=== PATIENT | male | born 1960 | race Caucasian/White ===

== ENCOUNTER 2016-11-23 20:55 | Emergency (ER) | payer OTHER ==
[2016-11-23 21:16] VITALS: BMI 25.7
--- NOTE | 2016-11-23 21:56 | DR.RASH ---
HPI - Time Seen Time seen: 21:50 - PCP Primary Care Physician: ANISH, - Complaint Chief Complaint:: GENERALIZED RASH Chief Complaint Doctors Comments: Patient states that he has had this rash for two to three weeks. He was given medication by pharmacist but rash continues. Onset of Chief Complaint: 11/09/16 Self Treatment fo Chief Complaint: ZRYTEC,BENDRYL,JOCK ITCH SPRAY,CALIMINE LOTION, - Source History Provided: Patient - Mode of Arrival Mode of Arrival: Ambulatory PMH - PM Past Medical History: Yes Past Medical History: Hypertension Past Surgical History: Yes Past Surgical History Comment: HERNIA REPAIR - Family History History of Family Medical Conditions: No - Social History Does patient currently use any type of tobacco product: Yes Have you used tobacco products in the last 12 months: Yes Type of Tobacco Use: Cigarettes Does any household member use tobacco: Yes Alcohol Use: None Do you use any recreational Drugs:: No Lives With: Family Lives Where: Home - infectious screening In the last 2 months have you had wt loss of >10#?: NO Have you had fever, night sweats or hemotysis?: No Have you traveled outside the country in the last 6 months?: No Isolation: Standard ROS - Review of Systems Eyes: No Symptoms Reported ENTM: No Symptoms Reported Respiratoy: No Symptoms Reported Cardiovascular: No Symptoms Reported Gastrointestinal/Abdominal: No Symptoms Reported Genitourinary: No Symptoms Reported Neurological: No Symptoms Reported Musculoskeletal: No Symptoms Reported Integumentary: No Symptoms Reported Hematologic/Lymphatic: No Symptoms Reported Endocrine: No Symptoms Reported Psychiatric: No Symptoms Reported All Other Systems: Reviewed and Negative PE - Vital Signs Vitals: Temperature 98.9 F Pulse Rate 84 Respiratory Rate 16 Blood Pressure 119/89 O2 Sat by Pulse Oximetry 96 - General Limitations: No Limitations General Appearance: Alert, In No Apparent Distress - Head Head Exam: Normal Inspection, Atraumatic - Eyes Eye exam: Normal Appearance, PERRL, EOMI - ENT ENT Exam: Normal Exam External Ear Exam: Normal External Inspection TM/Canal Exam: Bilateral Normal Nasal Speculum Exam: Bilateral Normal Mouth Exam: Normal Inspection Teeth Exam: Normal Inspection - Neck Neck Exam: Normal Inspection - Chest Chest Inspection: Normal Inspection - Respiratory Respiratory Exam: Normal Lung Sounds Bilat Respiratory Exam: Bilateral Clear to Auscultation - Cardiovascular Cardiovascular Exam: Regular Rate, Normal Rhythm - Abdominal Exam Abdominal Exam: Normal Inspection, Normal Bowel Sounds Abdominal Tenderness: negative: RUQ, RLQ, LUQ, LLQ, Epigastrium, Suprapubic, Diffuse, Mild, Moderate, Severe, Other - Extremities Extremities Exam: Normal Inspection - Back Back Exam: Normal Inspection - Neurologic Neurological Exam: Alert, Oriented X3, CN II-XII Intact - Psychiatric Psychiatric Exam: Normal Affect, Normal Mood - Skin Skin Exam: Warm, Dry, Rash (generalized macularpapular circular with hypopigmented center) Type of Lesion: Other (urticarial) Distribution: Generalized, Chest, Back, LUE, LLE - Diagnosis Discharge Problem: Urticarial vasculitis - Discharge Plan Condition: Stable - Follow ups/Referrals Follow ups/Referrals: MICHELLE OCONNELL [Primary Care Provider] - 3 days - Instructions
[2016-11-23] MEDS ORDERED: DECADRON INJ IM ONE (22:01)
[2016-11-23] MEDS ORDERED: DECADRON INJ ONE (22:05)
[2016-11-23 22:19] VITALS: BP 138/92
== END 2016-11-23 22:25 | disposition home or self-care (01) ==
LOC: ER 21:26
DX: L95.8 Other vasculitis limited to the skin (principal)
CPT/HCPCS: 96372; 99282; 99283; J1100

== ENCOUNTER 2017-03-01 00:01 | Emergency (ER) | payer OTHER ==
[2017-03-01 00:07] VITALS: BP 137/93; BMI 26.4
[2017-03-01] MEDS ORDERED: DECADRON INJ IM ONE (00:25)
--- NOTE | 2017-03-01 00:25 | DR.GENAD ---
HPI - PCP [facility] Care Physician: [facility] - Complaint/Symptoms Chief Complaint Doctors Comments: Patient is scheduled to see a website admin for his skin disease. He admits to papular erythematous lesions on bilateral forearms and knees Chief Complaint:: RASH FOR THE LAST 4 MONTHS AND NOW THE INSIDE OF MY MUSCLES ARE BEGINNING TO SWELL . - Source History Provided: Patient - Mode of Arrival Mode of Arrival: Ambulatory - Timing Onset of Chief Complaint: 10/28/16 PMH - PMH Past Medical History: Yes Past Medical History: Hypertension Past Surgical History: No - Family History History of Family Medical Conditions: No - Social History Type of Tobacco Use: Cigarettes Alcohol Use: None Do you use any recreational Drugs:: No Lives With: Spouse Lives Where: Home - infectious screening Have you traveled outside the country in the last 6 months?: No Isolation: Standard ROS - Review of Systems Eyes: No Symptoms Reported ENTM: No Symptoms Reported Respiratoy: No Symptoms Reported Cardiovascular: No Symptoms Reported Gastrointestinal/Abdominal: No Symptoms Reported Genitourinary: No Symptoms Reported Neurological: No Symptoms Reported Musculoskeletal: Other (papular rash on bilateral forearms and knees) Integumentary: No Symptoms Reported, Change in Color, Lumps Hematologic/Lymphatic: No Symptoms Reported Endocrine: No Symptoms Reported Psychiatric: No Symptoms Reported All Other Systems: Reviewed and Negative PE - Vital Signs Vitals: Temperature 97.6 F Pulse Rate 77 Respiratory Rate 18 Blood Pressure [Left Arm] 138/92 Blood Pressure 137/93 O2 Sat by Pulse Oximetry 99 - General Limitations: No Limitations General Appearance: Alert, In No Apparent Distress - Head Head Exam: Normal Inspection, Atraumatic - Eyes Eye exam: Normal Appearance, PERRL, EOMI - ENT ENT Exam: Normal Exam External Ear Exam: Normal External Inspection TM/Canal Exam: Bilateral Normal Nose Exam: Normal Nose Exam, Sinus Tenderness Mouth Exam: Normal Inspection, Drooling Throat Exam: Normal Inspection - Neck Neck Exam: Normal Inspection - Chest Chest Inspection: Normal Inspection, Symmetric Chest Wall Rise - Respiratory Respiratory Exam: Normal Lung Sounds Bilat Respiratory Exam: Bilateral Clear to Auscultation - Cardiovascular Cardiovascular Exam: Regular Rate, Normal Rhythm - Abdominal Exam Abdominal Exam: Normal Inspection Abdominal Tenderness: negative: RUQ, RLQ, LUQ, LLQ, Epigastrium, Suprapubic, Diffuse, Mild, Moderate, Severe, Other - Extremities Extremities Exam: Normal Inspection - Back Back Exam: Normal Inspection - Neurologic Neurological Exam: Alert, Oriented X3, CN II-XII Intact - Psychiatric Psychiatric Exam: Normal Affect, Normal Mood - Skin Skin Exam: Warm, Dry, Rash - Diagnosis Discharge Problem: Urticarial vasculitis - Discharge Plan Condition: Stable - Follow ups/Referrals Follow ups/Referrals: NFD,None [Primary Care Provider] - 3 days - Instructions
[2017-03-01] MEDS ORDERED: DECADRON INJ ONE (00:26)
== END 2017-03-01 00:38 | disposition home or self-care (01) ==
LOC: ER 00:01
DX: L95.8 Other vasculitis limited to the skin (principal)
CPT/HCPCS: 96372; 99281; 99282; J1100

== ENCOUNTER 2017-04-23 10:45 | Emergency (ER) | payer OTHER ==
[2017-04-23 10:51] VITALS: BP 121/79; BMI 26.9
[2017-04-23] MEDS ORDERED: SOLU-Medrol 40 MG VIAL IM ONE (11:23)
--- NOTE | 2017-04-23 11:23 | DR.GENAD ---
HPI - PCP Primary Care Physician: NF[facility] - Complaint/Symptoms Chief Complaint:: "For about 6 months now I have been having a rash come up all over my body. I have came here before for it. I have been seeing a skin doctor and they are doing some tests but havent found anything. They gave me some medicine for it but I think it may have made it worse I think. I'm not sure. About 4 days ago it came back worse than it has ever been." - Source History Provided: Patient - Mode of Arrival Mode of Arrival: Ambulatory - Timing Onset of Chief Complaint: 04/20/17 PMH - PM Past Medical History: Yes Past Medical History: Hypertension Past Surgical History: No - Family History History of Family Medical Conditions: No - Social History Does patient currently use any type of tobacco product: Yes Have you used tobacco products in the last 12 months: Yes Type of Tobacco Use: Cigarettes Does any household member use tobacco: Yes Alcohol Use: None Do you use any recreational Drugs:: No Lives With: Family Lives Where: Home - infectious screening In the last 2 months have you had wt loss of >10#?: NO Have you had fever, night sweats or hemotysis?: No Have you traveled outside the country in the last 6 months?: No Isolation: Standard ROS - Review of Systems Eyes: No Symptoms Reported ENTM: No Symptoms Reported Respiratoy: No Symptoms Reported Cardiovascular: No Symptoms Reported Gastrointestinal/Abdominal: No Symptoms Reported Genitourinary: No Symptoms Reported Neurological: No Symptoms Reported Musculoskeletal: No Symptoms Reported Integumentary: Rash (generalized macular erythematous rash) Hematologic/Lymphatic: No Symptoms Reported Endocrine: No Symptoms Reported Psychiatric: No Symptoms Reported All Other Systems: Reviewed and Negative PE - Vital Signs Vitals: Temperature 97.6 F Pulse Rate 92 Respiratory Rate 18 Blood Pressure [Left Arm] 138/92 Blood Pressure 121/79 O2 Sat by Pulse Oximetry 100 - General Limitations: No Limitations General Appearance: Alert, In No Apparent Distress - Head Head Exam: Normal Inspection, Atraumatic - Eyes Eye exam: Normal Appearance, PERRL, EOMI - ENT ENT Exam: Normal Exam External Ear Exam: Normal External Inspection TM/Canal Exam: Bilateral Normal Nose Exam: Normal Nose Exam Mouth Exam: Normal Inspection Throat Exam: Normal Inspection - Neck Neck Exam: Normal Inspection - Chest Chest Inspection: Normal Inspection - Respiratory Respiratory Exam: Normal Lung Sounds Bilat Respiratory Exam: Bilateral Clear to Auscultation - Cardiovascular Cardiovascular Exam: Regular Rate, Normal Rhythm - Abdominal Exam Abdominal Exam: Normal Inspection Abdominal Tenderness: negative: RUQ, RLQ, LUQ, LLQ, Epigastrium, Suprapubic, Diffuse, Mild, Moderate, Severe, Other - Extremities Extremities Exam: Normal Inspection, Full ROM - Back Back Exam: Normal Inspection, Full ROM - Neurologic Neurological Exam: Alert, Oriented X3, CN II-XII Intact - Psychiatric Psychiatric Exam: Normal Affect - Skin Skin Exam: Warm, Dry, Rash (generalized macular erythematous rash on trunk, pruretic) - Diagnosis Discharge Problem: Allergic contact dermatitis, unspecified cause Qualifiers: Contact dermatitis trigger: unspecified trigger Qualified Code(s): L23.9 - Allergic contact dermatitis, unspecified cause - Discharge Plan Condition: Stable - Follow ups/Referrals Follow ups/Referrals: NFD,None [Primary Care Provider] - 3 days - Instructions
[2017-04-23] MEDS ORDERED: SOLU-Medrol 40 MG VIAL ONE (11:26)
== END 2017-04-23 11:34 | disposition home or self-care (01) ==
LOC: ER 10:45
DX: L23.9 Allergic contact dermatitis, unspecified cause (principal)
CPT/HCPCS: 96372; 99282; J2920